=== PATIENT | female | born 1955 | race Caucasian/White ===

== ENCOUNTER → 2017-12-16 11:40 | Outpatient (CLI) | payer BC, SELFPAY ==
--- NOTE | 2017-12-16 11:47 | RAD_ITS ---
STUDY: X-RAY - RIGHT KNEE REASON FOR EXAM: Female, 62 years old. Right knee pain. TECHNIQUE: 4 view(s) of the knee. COMPARISON: None. FINDINGS: Normal visualized distal femur. Normal visualized proximal tibia and fibula. Normal proximal tibiofibular articulation. Normal medial femorotibial compartment. Normal lateral femorotibial compartment. Normal patellofemoral articulation. The soft tissue structures are unremarkable. RAD/Knee 4 or More Views IMPRESSION: Normal x-ray examination of the knee. Electronically Signed: En Christy MD at 12:52 EST Tel [phone], Service support ,
== END ==
PROVIDERS: Family Provider Family Medicine; PCP Family Medicine; Visit Provider Family Medicine
DX: M25.561 Pain in right knee (principal)
CPT/HCPCS: 73564

== ENCOUNTER 2018-06-19 07:58 | Day surgery (SDC) | payer BC, SELFPAY ==
[2018-06-19] VITALS (7 sets, daily range): BP systolic 141–149; BP diastolic 72–79; PULSE 65–70; RESP 12–16; TEMP 36.1–36.4; O2SAT 97–100; BMI 24.9
--- NOTE | 2018-06-19 09:17 | H&P.OPEN ---
Past Medical/Surgical History - Planned Operation Planned Operative Procedure/s: cscope Date of Operative Procedure: 06/19/18 Permit Signed: No S.O.S: No Is This Patient Having a Total Joint: No - Previous Hospitalizations/Surgeries HX Hospitalizations: Yes - pancreatitis yrs ago HX of Surgeries: csection x4. gallbladder. tubal ligation. colonoscopy Any Problems With Anesthesia: No You/Your Family Experience Fever (Hyperthermia) With Anes: No Cholinesterase deficiency: No - Cardiovascular Hx Chest Pain within Last 2 months: No Hx of Irregular Heartbeat and/or Afib: No Hx Heart Attack: No Hx Congestive Heart Failure: No Hx Rheumatic Fever: No Hx Hypertension: No Hx Internal Defibrillator: No Hx Pacemaker: No Hx Cardiac Catheterization: No Hx Cardiac Surgery/Stents/Etc.: No Hx Stress Test: No HX Edema: No Hx Pain in Legs when Walking/Leg Cramps: Yes - cramps prn - Respiratory Chronic Cough: No HX of Shortness of Breath: No Hoarseness: No Hx Chronic Obstructive Pulmonary Disease (COPD): No Hx Asthma: No Hx Emphysema: No Hx Sleep Apnea: No Hx Oxygen Use at Home: No Hx Respiratory Tract Infection/Cold (presently): No Do You Snore Loudly (louder than talking or can be heard): Yes Do You Often Feel Tired/ Fatigued/ Sleepy Dring Daytime?: No Has Anyone Observed You Stop Breathing During Sleep?: No Result (for STOP score): Negative Hx Smoking: No Smoking Status: Never smoker - Gastrointestinal Hx Gastroesophageal Reflux: No - occ heartburn Hx Gastrointestinal Disorders: No Hx Gastrointestinal Bleed: No Hx Ulcer: No Hx Hiatal Hernia: No Difficulty Chewing/Swallowing: No Recent Onset of Swallowing Problems: No Special diet followed at home: No Hx Unplanned Weight Loss of 20#: No HX Unplanned Weight Gain of 20#: No - Neurological Hx Seizures: No HX Syncope/Blackout Spells/Unconsciousness: No Hx CVA/Stroke: No Hx Transient Ischemic Attacks (TIA): No Hx Multiple Sclerosis: No Hx Parkinson's Disease: No Hx Head/Neck Injury: No Hx Headaches: No Hx Back Injury/Pain: Yes - back pain at times Recent Onset of Speech Difficulty: No Restless Legs: Yes Does patient have nerve stimulator: No Patient instructed to have device shut off: No Rep notified?: No - Blood Disorder Hx Leukemia: No Bleeding Tendencies: No Hx Deep Vein Thrombosis: No Hx High Cholesterol: No Blood Transmitted Disease: No Hx Hepatitis: No Hx Cirrhosis: No Hx Anemia: Yes - only during Hx Blood Disorders: No - Reproduction : No Is Patient Lactating: No Hx Hysterectomy: No Hx Tubal Ligation: Yes Are You Post Menopause: Yes - Genitourinary Hx Renal Disease: No - Musculoskeletal Hx Arthritis: Yes Hx Rheumatoid Arthritis: No Hx Gout: No Recent Onset of an Orthopedic Problem: No - Endocrine Hx Diabetes: No Thyroid Disease: No Hx Steroid Therapy: No - Psycho/Social Hx Substance Use: No Hx Alcohol Use: No Hx Anxiety: No Hx Depression: No - . Mental Illness: No Hx Dementia: No - Miscellaneous Hx Cancer: No Recent Exposure to Contagious Disease: No Active MRSA: No Hx of C-Diff: No Any Loose Teeth: No Allergies No Known Allergies Allergy (Verified 06/16/18 09:58) - Discharge Is Pt Admitted From a Halfway, or a Intermediate: No Who Could Help: family After D/C, Where Do you Plan to Go: Return Home - From the PAT History Number of Risk Factors: 3 - Physical Exam General: Alert, Oriented x3, Cooperative Lungs: Normal air movement Cardiovascular: Regular rate, Regular Rhythm Abdomen: Soft, Non Tender, Non-Distended Vital Signs Temp Pulse Resp BP Pulse Ox 97.6 F L 70 14 144/76 H 97 06/19/18 08:37 06/19/18 08:37 06/19/18 08:37 06/19/18 08:37 06/19/18 08:37 Oxygen Delivery Method Room Air Weight: 136 lb 3.931 oz Body Mass Index (BMI) 24.9 Assessment/Plan 63-year-old female for screening colonoscopy 1. The patient reports her last colonoscopy was 13 years ago and was normal. She is not having any issues at this time. She denies any abdominal pain or blood in her stool. She has no family history of colon cancer. 2. I explained endoscopy in detail to the patient. I explained the risks including but not limited to stroke or heart attack with anesthesia, perforation of the GI tract, bleeding, infection. I explained that any of these could necessitate further emergency surgery. The patient understands and all questions were answered sufficiently. The patient wishes to proceed with procedure. Audie Durham MD Pager: [facility] [address] [place] [address], [address] [place] [address] Office: Surgery Risks - Colonoscopy Risks Include but are not Limited To: Risks include but are not limited to: Bleeding, perforation requiring further surgery, inability to complete colonoscopy requiring barium enema.
--- NOTE | 2018-06-19 09:46 | PCM.OPRPT ---
Problem List (1) Screen for colon cancer Status: Acute Report of Operation Date of Procedure: 06/19/18 Pre-Operative Diagnosis: Screening for colon cancer Post-Operative Diagnosis: Normal colonoscopy Surgery/Procedure Performed:: Colonoscopy Description of Procedure: The major risks and benefits associated with the procedure were explained to the patient in detail. The patient verbalized understanding and agreement with the same. The patient was brought to the endoscopy suite. After adequate sedation was achieved, the patient was placed in the left lateral decubitus position and a digital rectal exam was performed. This examination was within normal limits. A well-lubricated colonoscope was then inserted into the rectum and advanced under direct visualization to the level of the cecum. The bowel prep was good. The cecum was identified by both visual and anatomic landmarks. A photograph was taken of the end of the cecum. The scope was then fully withdrawn while examining the color, texture, anatomy and integrity of the mucosa from the cecum to the anal canal. The findings were consistent with normal colonic mucosa. Over 6 minutes were taken to examine the colonic mucosa. Upon reaching the rectum the scope was retroflexed to examine the distal rectal vault. The scope was then straightened and was completely retrieved upon exiting the anal canal and the procedure was terminated. The patient was then transferred to the recovery room in stable condition. Recommendations for follow up: 10 years
== END 2018-06-19 10:30 | disposition home or self-care (01) ==
LOC: EN 07:59 → AC 08:00
PROVIDERS: Family Provider Family Medicine; PCP Family Medicine; Visit Provider Surgery
PROC: 0DJD8ZZ Inspection of Lower Intestinal Tract, Via Natural or Artificial Opening Endoscopic (ICD-10-PCS; CPT 45378; principal; 2018-06-19 08:55)
DX: Z12.11 Encounter for screening for malignant neoplasm of colon (principal); M19.90 Unspecified osteoarthritis, unspecified site
CPT/HCPCS: 45378; J7120

== ENCOUNTER → 2018-07-09 09:23 | Outpatient (CLI) | payer BC, SELFPAY | PROVIDERS: Family Provider Family Medicine; PCP Family Medicine; Visit Provider Family Medicine | DX: Z12.31 Encounter for screening mammogram for malignant neoplasm of breast (principal); M85.80 Other specified disorders of bone density and structure, unspecified site | CPT/HCPCS: 77063; 77067; 77080 ==

== ENCOUNTER → 2018-07-28 09:00 | Outpatient (CLI) | payer BC, SELFPAY ==
--- NOTE | 2018-07-28 09:05 | BI_ITS ---
MAMMOGRAPHY - UNILATERAL DIAGNOSTIC: LEFT BREAST REASON FOR EXAM: Female, 63 years old. Abnormal screening mammogram. PERTINENT HISTORY: Non-contributory. TECHNIQUE: Magnification spot views of the left breast in the mediolateral oblique and craniocaudad projections were obtained. CAD: Full Field Digital Mammography with Computer Added Detection was performed. COMPARISON: Comparison is made with prior mammogram dated July 09, 2018. FINDINGS: Breast Composition: There are scattered areas of fibroglandular density. There is evidence of a cluster of microcalcifications in the medial retroareolar region of the left breast. A biopsy is recommended. No other significant abnormalities are identified. BI/DIAG MAMM W/CAD, UNILAT IMPRESSION: Cluster microcalcifications in the medial retroareolar region of the left breast as described. A biopsy is recommended. ASSESSMENT CATEGORY: BIRADS Category 4: Suspicious - Biopsy Should Be Considered. A letter regarding these results will be sent to the patient by the facility within 30 days. Approximately 10% of breast cancers are not detected by mammography. A normal mammogram should not delay biopsy of a clinically suspicious abnormality. Electronically Signed: En Christy MD at 10:10 EDT Tel [phone], Service support ,
== END ==
PROVIDERS: Family Provider Family Medicine; PCP Family Medicine; Visit Provider Family Medicine
DX: R92.0 Mammographic microcalcification found on diagnostic imaging of breast (principal)
CPT/HCPCS: 77065

== ENCOUNTER → 2018-08-03 15:40 | Outpatient (CLI) | payer BC, SELFPAY ==
[2018-08-03 17:24] LABS: Absolute Lymphocyte Count 0.92 X10^3/ul (0.83-4.51); Absolute Neutrophil Count 2.7 X10^3/uL (2.0-7.7); Basophil# 0.02 X10^3/uL; Basophil% 0.5 % (0-1); Eosinophil# 0.07 X10^3/uL; Eosinophils% 1.8 % (0-5); Hemoglobin 11.5 g/dl (12.0-15.0); Lymphocyte # 0.92 X10^3/ul (4.0); Lymphocyte % 23.2 % (19-41); Mean Corp Hgb Conc 31.9 g/gl (32-36); Mean Corpuscular Hgb 29.6 pg (27.0-32.0); Mean Corpuscular Volume 92.8 fL (81-99); Mean Platelet Vol. 9.8 fl (6.2-12.0); Monocyte# 0.27 X10^3/uL; Monocyte% 6.8 % (0-10); Neutrophil # 2.68 X10^3/uL (2.7-7.7); Neutrophil % 67.7 % (47-70); Platelet Count 247 K/mm3 (150-450); RBC Distribution Width CV 13.9 % (11.6-14.6); RBC Distribution Width SD 46.1 fl (35.1-43.9); Red Blood Count 3.88 M/mm3 (4.2-5.4)
[2018-08-03 17:26] LABS: POSITIVE COUNT NO; POSITIVE DIFFERENTIAL NO; POSITIVE MORPHOLOGY NO
[2018-08-03 17:44] LABS: Anion Gap 4 (5-15); BUN 11 mg/dL (7-18); BUN/Creat Ratio 15.9 RATIO (10-20); Chloride 103 mmol/L (98-107); Creatinine, Serum 0.69 mg/dL (0.55-1.02); EST Glomerular Filtration Rate 91 mL/min (>60); Est Glom Filt Rate - Afr Amer 110 mL/min (>60); Glucose 107 mg/dL (74-106); Potassium 3.7 mmol/L (3.5-5.1); Sodium Level 137 mmol/L (136-145)
[2018-08-04 18:55] LABS: Ferritin 8 ng/mL (8-252); Iron 39 ug/dL (50-170)
== END ==
PROVIDERS: Family Provider Family Medicine; PCP Family Medicine; Visit Provider Family Medicine
DX: I10 Essential (primary) hypertension (principal); M85.80 Other specified disorders of bone density and structure, unspecified site; D64.9 Anemia, unspecified
CPT/HCPCS: 36415; 80048; 82728; 83540; 84443; 85025

== ENCOUNTER → 2018-08-10 11:53 | Outpatient (CLI) | payer BC, SELFPAY ==
--- NOTE | 2018-08-07 | BRBX_PTH ---
PATIENT: NEW HARRIS LOC: [facility] U#:[id number] AGE/SX: 70/F ROOM: RE08/10/[address]: Dr. Audie Durham MD : 1955 BED: DIS: SPEC #: [id number] RECD: 08/10/18 13:55 STATUS: ODALIS KEYLA #: [id number] TRAMAINE: 08/07/18 00:[address]: Audie Durham DEPT: SURGICAL PATHOLOGY RECD BY: Tee Posadas ENTERED: 08/10/18 13:55 SP TYPE: BREAST BX OTHR DR: Dr. Paulie Hidalgo MD Tissues: Left breast, NOS Procedures: Surgery Specimen Level IV HEADER OPERATION: Left breast stereotactic biopsy PRE-OP DIAGNOSIS: Left breast calcifications TISSUE SUBMITTED: Left breast core tissue ISCHEMIC TIME: 1 minute FIXATION TIME: 7 hours MICROSCOPIC DIAGNOSIS Left breast, stereotactic core biopsy: Intraductal hyperplasia with focal cytologic atypia and associated microcalcifications. Mild fibrocystic change. AM:tri 08/11/18 COMMENT Case has been reviewed in consultation with Dr. Bronson who concurs with the above diagnosis. IDC:LEANA MICROSCOPIC DESCRIPTION Slides are reviewed. GROSS DESCRIPTION Received is one container labeled with the patient's name and not further designated. The specimen consists of multiple elongated fragments of key-yellow fibroadipose tissue that in aggregate measure 3 x 2.5 x 0.3 cm. The entire specimen is submitted in one cassette. / SJ:tri 08/11/18 TC:5 CPT: 84228
--- NOTE | 2018-08-11 12:21 | PCM.OPRPT ---
Problem List (1) Abnormal mammogram Status: Acute Report of Operation Date of Procedure: 08/10/18 Pre-Operative Diagnosis: Left breast microcalcifications Post-Operative Diagnosis: same Surgery/Procedure Performed:: Stereotactic guided left breast core needle biopsy with clip placement Specimen's removed: Left breast biopsy Description of Procedure: Patient was placed in stereotactic table and left breast was compressed. Next the microcalcifications were localized and targeted on computer. Next the skin was prepped and anesthetized. A small mitch was created with scalpel. The needle was inserted and fired. Stereotactic images confirmed placement and then biopsies were obtained. Specimens were xrayed and microcalcifications were present. Micro clip was then placed in the cavity and mammogram confirmed presence. The needle was removed and pressure was held on the breast. Incision was closed with steri strip and bandage was applied. Ice pack was given to patient. Patient tolerated the procedure well.
== END ==
PROVIDERS: Family Provider Family Medicine; PCP Family Medicine; Visit Provider Surgery
DX: N60.92 Unspecified benign mammary dysplasia of left breast (principal); N60.12 Diffuse cystic mastopathy of left breast; I10 Essential (primary) hypertension; M19.90 Unspecified osteoarthritis, unspecified site; Z79.899 Other long term (current) drug therapy
CPT/HCPCS: 19081; 88305; J7050

== ENCOUNTER 2018-09-11 09:56 | Day surgery (SDC) | payer BC, SELFPAY ==
--- NOTE | 2018-09-11 | BREAST_PTH ---
PATIENT: NEW HARRIS LOC: [facility] U#:[id number] AGE/SX: 63/F ROOM: RE09/11/[address]: Dr. Audie Durham MD : 1955 BED: DIS: 09/11/2018 SPEC #: [id number] RECD: 09/11/18 13:12 STATUS: ODALIS KEYLA #: [id number] TRAMAINE: 09/11/18 00:[address]: Audie Durham DEPT: SURGICAL PATHOLOGY RECD BY: Tee Posadas ENTERED: 09/11/18 13:13 SP TYPE: BREAST OTHR DR: Dr. Paulie Hidalgo MD Tissues: Left breast, NOS Procedures: Surgery Specimen Level V HEADER OPERATION: Left breast excisional biopsy, needle localization PRE-OP DIAGNOSIS: Atypical hyperplasia left breast TISSUE SUBMITTED: Left breast biopsy, needle localization MICROSCOPIC DIAGNOSIS Left breast, needle localization excisional biopsy: Fibrocystic changes and intraductal hyperplasia with focal atypia. Negative for malignancy. Changes consistent with previous biopsy site. SJ:rg 09/16/18 COMMENT Please make reference to previous specimen ([id number]), left breast, stereotactic core biopsy with diagnosis of intraductal hyperplasia with focal cytologic atypia and associated microcalcifications. MICROSCOPIC DESCRIPTION Slides are reviewed. GROSS DESCRIPTION Received fresh and postfixed in formalin labeled with the patient's name is a specimen designated left breast biopsy needle localization. The specimen consists of a piece of key-yellow fibroadipose tissue with needle localization measuring 4 x 2.5 x 3 cm. The specimen is oriented as follows: short suture - superior, long suture - lateral. The specimen is inked as follows: anterior - yellow, posterior - black, superior - blue, inferior - green, medial - red, lateral - orange. The specimen is serially sectioned and reveals a focally key-yellowish indurated area consistent with previous biopsy site. No obvious mass lesion is identified. The entire specimen is submitted in 11 cassettes. Cassette 1 contains the most anterior portion of the specimen. Cassette 11 contains the most posterior portion of the specimen. Sections will be submitted after additional fixation. / LEANA:tri 09/14/18 TC:5 CPT: 22065
--- NOTE | 2018-09-11 10:00 | BI_ITS ---
SURGICAL BREAST SPECIMEN RADIOGRAPH CLINICAL: Document presence of tissue clip marker in biopsy specimen. FINDINGS: Specimen shows presence of tissue clip marker. Electronically Signed: En Christy MD at 12:34 EDT Tel [phone], Service support , BI/Breast Biopsy Specimen
[2018-09-11 10:24] VITALS: BP 138/77; PULSE 77; RESP 16; TEMP 36.9; O2SAT 97; BMI 25.7
--- NOTE | 2018-09-11 11:24 | PCM.HP.STD ---
Problem List (1) Atypical hyperplasia of left breast Status: Acute History of Present Illness Date of Admission: 09/11/18 The patient is a 63 year old F who underwent stereotactic guided biopsy of left breast calcifications. Since then the patient has been doing well with no bruising or swelling. Past Medical History Past Medical History (Chronic Problems): Chronic Problems (Last Updated 08/05/18 @ 08:53 by Natacha Cervantes) Hypertension (Chronic) Medical History: Medical History (Last Updated 08/05/18 @ 08:53 by Natcaha Cervantes) Hypertension (Chronic) I10 Arthritis (Acute) M19.90 Screen for colon cancer (Acute) Z12.11 Allergies No Known Allergies Allergy (Verified 09/07/18 11:52) Home Medications: Ambulatory Orders Medication Instructions Recorded Calcium Carbonate [Calcium] 600 mg PO BID 06/16/18 Glucosamine Sulf/Chondroitin A 1 ea PO BID 06/16/18 [Glucosamine-Chondroitin Cap] losartan 25 mg tablet 25 mg PO DAILY 08/05/18 Surgical History: Surgical History (Last Updated 08/05/18 @ 08:53 by Natacha Cervantes) Hx of colonoscopy (Acute) Z98.890 Hx of cholecystectomy (Acute) Z90.49 Hx of section (Acute) Z98.891 X4- 1978, 1979, 1981, 1983 Surgical History: no surgical history Smoking Status: Never smoker Tobacco Use: Non-smoker - *Family History Maternal Family History: Family History (Last Updated 08/05/18 @ 09:07 by Natacha Cervantes) Mother Arthritis Sister Diabetes Heart disease Hypertension Thyroid disorder Cancer Brother Heart disease Hypertension CVA (cerebral vascular accident) Father Hypertension Heart disease Daughter Leukemia Review of Systems Constitutional: Denies: Chills, Fever, Weight Change HEENT: Denies: Head Aches, Sinus Congestion, Sinus Drainage Cardiovascular: Denies: Chest Pain, Palpitations Respiratory: Denies: Cough, Shortness of breath at rest, Sputum production Gastrointestinal: Denies: Abdominal Pain, Nausea, Vomiting Genitourinary: Denies: Dysuria Musculoskeletal: Denies: Joint Pain, Joint Tenderness Skin: Denies: Rash, Wounds Neurological: Denies: Numbness, Tingling, Focal weakness Psychiatric: Denies: Anxiety, Depression, Homicidal Ideations, Suicidal Ideations Hematologic/ Lymphatic: Denies: Easy Bruising, Easy Bleeding VTE Information - Inpt Only VTE Present on Admission: No Patient Problems: Active and Suspected Problems (Last Updated 08/05/18 @ 08:53 by Natacha Cervantes) Atypical hyperplasia of left breast (Acute) - Physical Exam General: Alert, Oriented x3, Cooperative HEENT: Atraumatic, PERRLA, EOMI, Normocephalic Neck: Supple, No JVD, Negative Carotid Bruits Lungs: Clear to auscultation, Normal air movement Cardiovascular: Regular rate, No murmurs Abdomen: Bowel Sounds Present, Soft, Non Tender Extremities: No edema, Capillary Refill Less than 3 Seconds Skin: No rashes, No breakdown Musculoskeletal: No Tenderness to Palpation of Joints or Extremities Neurological: Cranial nerves II-XII grossly intact Psych/Mental Status: Normal Affect, Appropriate Vital Signs Temp Pulse Resp BP Pulse Ox 98.4 F 77 16 138/77 H 97 09/11/18 10:24 09/11/18 10:24 09/11/18 10:24 09/11/18 10:24 09/11/18 10:24 Oxygen Delivery Method Room Air Weight: 140 lb 10.479 oz Body Mass Index (BMI) 25.7 Assessment/Plan All Active Problems (Last Updated 08/05/18 @ 08:53 by Natacha Cervantes) Abnormal mammogram (Acute) Atypical hyperplasia of left breast (Acute) Hx of colonoscopy (Acute) Hx of cholecystectomy (Acute) Hx of section (Acute) Arthritis (Acute) Screen for colon cancer (Acute) 63-year-old female with hyperplasia and atypia on the left breast 1. Patient had stereotactic guided biopsy of microcalcifications of the left breast. The results came back as hyperplastic changes with focal atypia. Due to the atypia I recommend that the patient have an excisional biopsy of the area. The patient is agreeable. I plan for needle localized excisional breast biopsy in the operating room. I explained the risks of bleeding, infection, seroma formation. The patient understands the risks and is willing to proceed with surgery. Audie Durham MD Pager: [facility] [address] [place] [address], [address] [place] [address] Office:
--- NOTE | 2018-09-11 11:26 | PCM.OPRPT ---
Problem List (1) Atypical hyperplasia of left breast Status: Acute Report of Operation Date of Procedure: 09/11/18 Pre-Operative Diagnosis: Hyperplasia of the left breast with atypia Post-Operative Diagnosis: Same Surgery/Procedure Performed:: Stereotactic guided needle wire localization Description of Procedure: The patient was brought to the stereotactic room and placed in the stereotactic table. The left breast was compressed and spot views were able to localize the clip from the prior biopsy. +/-15 degree views were obtained and the clip was localized. Next the skin was prepped with Betadine and anesthetized with lidocaine. The needle was advanced and the guidewire was held in place as the needle was pulled back. The needle was then clipped and mammographic views confirmed that the tip of the needle was adjacent to the titanium clip. Patient tolerated the procedure well and will be taken downstairs for excisional biopsy.
--- NOTE | 2018-09-11 11:27 | HP.PCM_ITS ---
Problem List (1) Atypical hyperplasia of left breast Status: Acute History of Present Illness Date of Admission: 09/11/18 The patient is a 63 year old F who underwent stereotactic guided biopsy of left breast calcifications. Since then the patient has been doing well with no bru ising or swelling. Past Medical History Past Medical History (Chronic Problems): Chronic Problems (Last Updated 08/05/18 @ 08:53 by Natacha Cervantes) Hypertension (Chronic) Medical History: Medical History (Last Updated 08/05/18 @ 08:53 by Natacha Cervantes) Hypertension (Chronic) I10 Arthritis (Acute) M19.90 Screen for colon cancer (Acute) Z12.11 Allergies No Known Allergies Allergy (Verified 09/07/18 11:52) Home Medications: Ambulatory Orders Medication Instructions Recorded Calcium Carbonate [Calcium] 600 mg PO BID 06/16/18 Glucosamine Sulf/Chondroitin A 1 ea PO BID 06/16/18 [Glucosamine-Chondroitin Cap] losartan 25 mg tablet 25 mg PO DAILY 08/05/18 Surgical History: Surgical History (Last Updated 08/05/18 @ 08:53 by Natacha Cervantes) Hx of colonoscopy (Acute) Z98.890 Hx of cholecystectomy (Acute) Z90.49 Hx of section (Acute) Z98.891 X4- 1978, 1979, 1981, 1983 Surgical History: no surgical history Smoking Status: Never smoker Tobacco Use: Non-smoker - *Family History Maternal Family History: Family History (Last Updated 08/05/18 @ 09:07 by Natacha Cervantes) Mother Arthritis Sister Diabetes Heart disease Hypertension Thyroid disorder Cancer Brother Heart disease Hypertension CVA (cerebral vascular accident) Father Hypertension Heart disease Daughter Leukemia Review of Systems Constitutional: Denies: Chills, Fever, Weight Change HEENT: Denies: Head Aches, Sinus Congestion, Sinus Drainage Cardiovascular: Denies: Chest Pain, Palpitations Respiratory: Denies: Cough, Shortness of breath at rest, Sputum production Gastrointestinal: Denies: Abdominal Pain, Nausea, Vomiting Genitourinary: Denies: Dysuria Musculoskeletal: Denies: Joint Pain, Joint Tenderness Skin: Denies: Rash, Wounds Neurological: Denies: Numbness, Tingling, Focal weakness Psychiatric: Denies: Anxiety, Depression, Homicidal Ideations, Suicidal Ideations Hematologic/ Lymphatic: Denies: Easy Bruising, Easy Bleeding VTE Information - Inpt Only VTE Present on Admission: No Patient Problems: Active and Suspected Problems (Last Updated 08/05/18 @ 08:53 by Natacha Cervantes) Atypical hyperplasia of left breast (Acute) - Physical Exam General: Alert, Oriented x3, Cooperative HEENT: Atraumatic, PERRLA, EOMI, Normocephalic Neck: Supple, No JVD, Negative Carotid Bruits Lungs: Clear to auscultation, Normal air movement Cardiovascular: Regular rate, No murmurs Abdomen: Bowel Sounds Present, Soft, Non Tender Extremities: No edema, Capillary Refill Less than 3 Seconds Skin: No rashes, No breakdown Musculoskeletal: No Tenderness to Palpation of Joints or Extremities Neurological: Cranial nerves II-XII grossly intact Psych/Mental Status: Normal Affect, Appropriate Vital Signs Temp Pulse Resp BP Pulse Ox 98.4 F 77 16 138/77 H 97 09/11/18 10:24 09/11/18 10:24 09/11/18 10:24 09/11/18 10:24 09/11/18 10:24 Oxygen Delivery Method Room Air Weight: 140 lb 10.479 oz Body Mass Index (BMI) 25.7 Assessment/Plan All Active Problems (Last Updated 08/05/18 @ 08:53 by Natacha Cervantes) Abnormal mammogram (Acute) Atypical hyperplasia of left breast (Acute) Hx of colonoscopy (Acute) Hx of cholecystectomy (Acute) Hx of section (Acute) Arthritis (Acute) Screen for colon cancer (Acute) 63-year-old female with hyperplasia and atypia on the left breast 1. Patient had stereotactic guided biopsy of microcalcifications of the left breast. The results came back as hyperplastic changes with focal atypia. Due to the atypia I recommend that the patient have an excisional biopsy of the area. The patient is agreeable. I plan for needle localized excisional breast biopsy in the operating room. I explained the risks of bleeding, infection, seroma formation. The patient understands the risks and is willing to proceed with surgery. Audie Durham MD Pager: [facility] [address] [place] [address], [address] [place] [address] Office:
[2018-09-11] MEDS: Cefazolin 2 GM in 0.9% Normal Saline 100 ML IV (11:49)
[2018-09-11] MEDS: Bupivacaine Mpf 0.5% 30 ML VIAL (11:58)
--- NOTE | 2018-09-11 12:26 | PCM.OPRPT ---
Problem List (1) Atypical hyperplasia of left breast Status: Acute Report of Operation Date of Procedure: 09/11/18 Pre-Operative Diagnosis: Hyperplasia of the left breast with atypia Post-Operative Diagnosis: Same Surgery/Procedure Performed:: Needle localized excisional biopsy of left breast Specimen's removed: Left breast with long lateral suture and short superior suture Description of Procedure: The patient went for needle localization prior to operation please see separate operative report for that. The patient was brought back the operating room and general anesthesia was induced. The left breast was prepped and draped in the usual sterile fashion. An incision was marked in the medial periareolar space coinciding with the edge of the nipple. An incision was made with scalpel and this was extended medially and laterally. The wire was brought into the incision. Next the wire and breast tissue posterior to the nipple are grasped with an Allis clamp and elevated. Electrocautery was used to dissect circumferential until the wire tip was reached the specimen was then removed using Dr. galvanterena. The specimen was marked with a short stitch superiorly and long stitch laterally. This was sent for x-ray. Next the cavity was packed and then inspected. There were a few areas that were bleeding and these areas were cauterized. Next the cavity was irrigated and suctioned dry and there was no further bleeding. A few deep 3-0 Vicryl sutures were used to bring together the deep tissue of the breast. The incision was then closed with interrupted 3-0 Vicryl sutures. The incision was then anesthetized with lidocaine and the skin was closed with a running 4-0 Monocryl suture. Histocryl glue was then applied to the incision. The patient was awoken and taken to PACU in stable condition. The patient tolerated the procedure well. X-rays of the specimen show that the biopsy clip was present in the specimen and as was the entirety of the wire. - Admit VTE Documentation VTE Mechan Device Prophylaxis: SCD's
[2018-09-11 12:27] VITALS: BP 134/75; BP 138/77; PULSE 75; RESP 16; TEMP 36.3; O2SAT 97
[2018-09-11 12:30] VITALS: BP 133/82; BP 138/77; PULSE 77; RESP 16; O2SAT 99
--- NOTE | 2018-09-11 12:38 | DCINST_ITS ---
Discharge Diet: No Restrictions Discharge Activity: May Not Drive - for 2-3 days or while taking narcotic pain meds. May shower in (days): 1 Lifting Restrictions: 10 pounds for 1 week. Call your doctor if your incision/area has: Continuous Slow Oozing, Sudden In creased Bleeding, Increased Pain/ Swelling, Increased Redness, Foul Smelling Discharge, Swelling at the incision site Call your doctor if you observe: Fever of 101 or Higher Suture Line Care: Avoid Pulling/Pushing, Avoid Pinching/Bending Cleanse incision/area with: Soap & Water Allergies/Adverse Reactions: Allergies No Known Allergies Allergy (Verified 09/07/18 11:52) Medications to take at Discharge Calcium Carbonate [Calcium] 600 mg PO BID 06/16/18 Glucosamine Sulf/Chondroitin A [Glucosamine-Chondroitin Cap] 1 ea PO BID 06/16/18 losartan 25 mg tablet 25 mg PO DAILY 08/05/18 Oxycodone HCl/Acetaminophen [Percocet 5/325] 1 - 2 tablet PO Q4H PRN PRN 7 Days #20 tablet 09/11/18 The following prescriptions were given: Oxycodone HCl/Acetaminophen [Percocet 5/325] 1 - 2 tablet PO Q4H PRN PRN 7 Days #20 tablet PRN Reason: Pain Primary Care Physician: Paulie Hidalgo MD [Primary Care Provider] - Please Follow Up With: Audie Durham MD When: call friday to make 2 week follow up [phone]
[2018-09-11 12:45] VITALS: BP 137/76; BP 138/77; PULSE 66; RESP 16; TEMP 36.1; O2SAT 100
[2018-09-11 13:12] VITALS: BP 138/77
== END 2018-09-11 13:44 | disposition home or self-care (01) ==
LOC: SDC 10:08 → AC 10:08
PROVIDERS: Family Provider Family Medicine; PCP Family Medicine; Referring Provider Surgery; Visit Provider Surgery
PROC: (CPT 19125; principal; 2018-09-11 11:15)
DX: N60.12 Diffuse cystic mastopathy of left breast (principal); N60.92 Unspecified benign mammary dysplasia of left breast; I10 Essential (primary) hypertension; M19.90 Unspecified osteoarthritis, unspecified site; Z79.899 Other long term (current) drug therapy
CPT/HCPCS: 00400; 19125; 19281; 76098; 88307; J7120; J2405

== ENCOUNTER → 2019-01-18 10:12 | Outpatient (CLI) | payer MEDICARE, BC, SELFPAY ==
[2019-01-18 12:26] LABS: Absolute Lymphocyte Count 1.03 X10^3/ul (0.83-4.51); Absolute Neutrophil Count 2.4 X10^3/uL (2.0-7.7); Basophil# 0.03 X10^3/uL; Basophil% 0.8 % (0-1); Eosinophil# 0.07 X10^3/uL; Eosinophils% 1.8 % (0-5); Hematocrit 40.8 % (37-47); Hemoglobin 12.7 g/dl (12.0-15.0); Lymphocyte # 1.03 X10^3/ul (4.0); Lymphocyte % 26.4 % (19-41); Mean Corp Hgb Conc 31.1 g/gl (32-36); Mean Corpuscular Hgb 29.1 pg (27.0-32.0); Mean Corpuscular Volume 93.4 fL (81-99); Mean Platelet Vol. 10.3 fl (6.2-12.0); Monocyte# 0.33 X10^3/uL; Monocyte% 8.5 % (0-10); Neutrophil # 2.43 X10^3/uL (2.7-7.7); Neutrophil % 62.2 % (47-70); Platelet Count 229 K/mm3 (150-450); RBC Distribution Width CV 14.5 % (11.6-14.6); RBC Distribution Width SD 47.2 fl (35.1-43.9); Red Blood Count 4.37 M/mm3 (4.2-5.4); White Blood Count 3.9 K/mm3 (4.4-11.0)
[2019-01-18 12:28] LABS: POSITIVE COUNT NO; POSITIVE DIFFERENTIAL NO; POSITIVE MORPHOLOGY NO
[2019-01-18 13:05] LABS: Anion Gap 5 (5-15); BUN 11 mg/dL (7-18); BUN/Creat Ratio 15.9 RATIO (10-20); Calcium,Total 8.9 mg/dL (8.5-10.1); Chloride 105 mmol/L (98-107); Creatinine, Serum 0.69 mg/dL (0.55-1.02); EST Glomerular Filtration Rate 91 mL/min (>60); Est Glom Filt Rate - Afr Amer 110 mL/min (>60); Glucose 92 mg/dL (74-106); Potassium 4.1 mmol/L (3.5-5.1); Sodium Level 139 mmol/L (136-145)
== END ==
PROVIDERS: Family Provider Family Medicine; PCP Family Medicine; Visit Provider Family Medicine
DX: I10 Essential (primary) hypertension (principal); D64.9 Anemia, unspecified
CPT/HCPCS: 36415; 80048; 85025

== ENCOUNTER → 2021-01-03 16:10 | Outpatient (CLI) | payer MEDICARE, BC, SELFPAY ==
[2021-01-03 17:40] LABS: Absolute Lymphocyte Count 1.19 X10^3/uL (0.83-4.51); Absolute Neutrophil Count 2.5 X10^3/uL (2.0-7.7); Basophil# 0.04 X10^3/uL; Basophil% 0.9 % (0-1); Eosinophil# 0.09 X10^3/uL; Eosinophils% 2.1 % (0-5); Hemoglobin 13.4 g/dL (12.0-15.0); Lymphocyte # 1.19 X10^3/ul (4.0); Lymphocyte % 27.8 % (19-41); Mean Corp Hgb Conc 32.7 g/dL (32-36); Mean Corpuscular Hgb 30.5 pg (27.0-32.0); Mean Corpuscular Volume 93.4 fL (81-99); Mean Platelet Vol. 9.8 fl (6.2-12.0); Monocyte# 0.47 X10^3/uL; NRBC Flagged by Analyzer 0 % (0-5); Neutrophil # 2.48 X10^3/uL (2.7-7.7); Platelet Count 246 K/mm3 (150-450); RBC Distribution Width CV 12.5 % (11.6-14.6); RBC Distribution Width SD 43.4 fl (35.1-43.9); Red Blood Count 4.39 M/mm3 (4.2-5.4); White Blood Count 4.3 K/mm3 (4.4-11.0)
[2021-01-03 18:21] LABS: Anion Gap 5 (5-15); BUN 14 mg/dL (7-18); BUN/Creat Ratio 18.9 RATIO (10-20); Chloride 104 mmol/L (98-107); Creatinine, Serum 0.74 mg/dL (0.55-1.02); EST Glomerular Filtration Rate 83 mL/min (>60); Est Glom Filt Rate - Afr Amer 101 mL/min (>60); Glucose 101 mg/dL (74-106); Potassium 3.9 mmol/L (3.5-5.1); Sodium Level 139 mmol/L (136-145); Thyroid Stim Hormone (TSH) 0.98 uIU/mL (0.358-3.74)
== END ==
PROVIDERS: PCP Family Medicine; Visit Provider Family Medicine
DX: I10 Essential (primary) hypertension (principal); D64.9 Anemia, unspecified; M85.80 Other specified disorders of bone density and structure, unspecified site
CPT/HCPCS: 36415; 80048; 82306; 84443; 85025

== ENCOUNTER → 2022-05-13 | Outpatient (CLI) | payer MEDICARE, BC, SELFPAY ==
[2022-05-13 18:35] LABS: Anion Gap 7 (5-15); BUN 12 mg/dL (7-18); BUN/Creat Ratio 16.9 RATIO (10-20); Calcium,Total 9.3 mg/dL (8.5-10.1); Chloride 106 mmol/L (98-107); Creatinine, Serum 0.71 mg/dL (0.55-1.02); EST Glomerular Filtration Rate 87 mL/min (>60); Est Glom Filt Rate - Afr Amer 105 mL/min (>60); Glucose 118 mg/dL (74-106); Potassium 3.7 mmol/L (3.5-5.1); Sodium Level 141 mmol/L (136-145)
[2022-05-13 18:36] LABS: Vitamin D,25 Hydroxy 33.4 ng/mL
== END | disposition home or self-care (01) ==
PROVIDERS: PCP Family Medicine; Referring Provider Family Medicine; Visit Provider Family Medicine
DX: E55.9 Vitamin D deficiency, unspecified (principal); I10 Essential (primary) hypertension
CPT/HCPCS: 36415; 80048; 82306

== ENCOUNTER → 2023-05-27 | Outpatient (CLI) | payer MEDICARE, OTHER, SELFPAY ==
[2023-05-27 12:20] LABS: Absolute Lymphocyte Count 0.93 X10^3/uL (0.83-4.51); Basophil# 0.03 X10^3/uL; Basophil% 0.9 % (0-1); Eosinophil# 0.05 X10^3/uL; Eosinophils% 1.5 % (0-5); Hematocrit 39.7 % (37-47); Hemoglobin 13.4 g/dL (12.0-15.0); Lymphocyte # 0.93 X10^3/ul (0.83-4.51); Lymphocyte % 27.3 % (19-41); Mean Corp Hgb Conc 33.8 g/dL (32-36); Mean Corpuscular Hgb 31.4 pg (27.0-32.0); Mean Platelet Vol. 10.2 fl (6.2-12.0); Monocyte# 0.36 X10^3/uL; Monocyte% 10.6 % (0-10); NRBC Flagged by Analyzer 0 % (0-5); Neutrophil # 2.02 X10^3/uL (2.7-7.7); Neutrophil % 59.1 % (47-70); Platelet Count 228 K/mm3 (150-450); RBC Distribution Width CV 12.9 % (11.6-14.6); RBC Distribution Width SD 43.8 fl (35.1-43.9); Red Blood Count 4.27 M/mm3 (4.2-5.4); White Blood Count 3.4 K/mm3 (4.4-11.0)
[2023-05-27 12:34] LABS: Vitamin D,25 Hydroxy 34.2 ng/mL
[2023-05-27 12:39] LABS: ALB/GLOB Ratio 1.1 RATIO (0.9-2.4); AST(SGOT) 24 U/L (15-37); Alanine Aminotransfer ALT/SGPT 34 U/L (13-56); Albumin, Serum 3.7 g/dL (3.2-5.0); Alkaline Phosphatase 77 U/L (45-117); Anion Gap 7 (5-15); BUN 13 mg/dL (7-18); BUN/Creat Ratio 17.6 RATIO (10-20); Calcium,Total 9.2 mg/dL (8.5-10.1); Chloride 106 mmol/L (98-107); Creatinine, Serum 0.74 mg/dL (0.55-1.02); EST Glomerular Filtration Rate 83 mL/min (>60); Est Glom Filt Rate - Afr Amer 100 mL/min (>60); Globulin 3.4 g/dL (2.2-4.2); Glucose 96 mg/dL (74-106); Potassium 3.9 mmol/L (3.5-5.1); Protein, Total 7.1 g/dL (6.4-8.2); Sodium Level 139 mmol/L (136-145)
== END | disposition home or self-care (01) ==
PROVIDERS: PCP Nurse Practitioner Family; Referring Provider Nurse Practitioner Family; Visit Provider Nurse Practitioner Family
DX: I10 Essential (primary) hypertension (principal); D64.9 Anemia, unspecified; E55.9 Vitamin D deficiency, unspecified
CPT/HCPCS: 36415; 80053; 82306; 85025

== ENCOUNTER → 2024-06-02 | Outpatient (CLI) | payer MEDICARE, OTHER, SELFPAY ==
[2024-06-02 15:56] LABS: Absolute Lymphocyte Count 0.94 X10^3/uL (0.83-4.51); Absolute Neutrophil Count 2.4 X10^3/uL (2.0-7.7); Basophil# 0.02 X10^3/uL; Basophil% 0.5 % (0-1); Eosinophil# 0.08 X10^3/uL; Eosinophils% 2.1 % (0-5); Hematocrit 40.4 % (37-47); Hemoglobin 13.2 g/dL (12.0-15.0); Lymphocyte # 0.94 X10^3/ul (0.83-4.51); Lymphocyte % 24.8 % (19-41); Mean Corp Hgb Conc 32.7 g/dL (32-36); Mean Corpuscular Hgb 30.8 pg (27.0-32.0); Mean Corpuscular Volume 94.4 fL (81-99); Mean Platelet Vol. 10.5 fl (6.2-12.0); Monocyte% 7.9 % (0-10); NRBC Flagged by Analyzer 0 % (0-5); Neutrophil # 2.44 X10^3/uL (2.7-7.7); Neutrophil % 64.4 % (47-70); Platelet Count 235 K/mm3 (150-450); RBC Distribution Width CV 13.1 % (11.6-14.6); RBC Distribution Width SD 44.7 fl (35.1-43.9); Red Blood Count 4.28 M/mm3 (4.2-5.4); White Blood Count 3.8 K/mm3 (4.4-11.0)
[2024-06-02 16:17] LABS: Vitamin D,25 Hydroxy 54.9 ng/mL
[2024-06-02 16:18] LABS: ALB/GLOB Ratio 1.2 RATIO (0.9-2.4); AST(SGOT) 22 U/L (15-37); Alanine Aminotransfer ALT/SGPT 31 U/L (13-56); Albumin, Serum 3.8 g/dL (3.2-5.0); Alkaline Phosphatase 79 U/L (45-117); Anion Gap 4 (5-15); BUN 16 mg/dL (7-18); BUN/Creat Ratio 19.1 RATIO (10-20); Calcium,Total 9.3 mg/dL (8.5-10.1); Chloride 105 mmol/L (98-107); Cholesterol 214 mg/dL (200); Creatinine, Serum 0.84 mg/dL (0.55-1.02); EST Glomerular Filtration Rate 71 mL/min (>60); Est Glom Filt Rate - Afr Amer 86 mL/min (>60); Globulin 3.3 g/dL (2.2-4.2); Glucose 126 mg/dL (74-106); High Density Lipoprotein 56 mg/dL; Protein, Total 7.1 g/dL (6.4-8.2); Sodium Level 138 mmol/L (136-145); Triglycerides 256 mg/dL; Very Low Density Lipoprotein 51 mg/dL (5-40)
== END | disposition home or self-care (01) ==
LOC: LABSPEC 15:12 → BFHLAB 15:55
PROVIDERS: PCP Nurse Practitioner Family; Referring Provider Nurse Practitioner Family; Visit Provider Nurse Practitioner Family
DX: Z00.01 Encounter for general adult medical examination with abnormal findings (principal); I10 Essential (primary) hypertension; E55.9 Vitamin D deficiency, unspecified
CPT/HCPCS: 36415; 80053; 80061; 82306; 85025

== ENCOUNTER → 2025-06-06 | Outpatient (CLI) | payer MEDICARE, OTHER, SELFPAY ==
[2025-06-06 12:35] LABS: Hematocrit 39.7 % (37-47); Hemoglobin 13.2 g/dL (12.0-15.0); Immature Granulocytes Count 0.010 X10^3/uL (0.0-0.0); Mean Corp Hgb Conc 33.2 g/dL (32-36); Mean Corpuscular Volume 93.0 fL (81-99); Mean Platelet Vol. 10.3 fl (6.2-12.0); NRBC Flagged by Analyzer 0 % (0-5); Platelet Count 220 K/mm3 (150-450); RBC Distribution Width CV 12.8 % (11.6-14.6); RBC Distribution Width SD 43.8 fl (35.1-43.9); Red Blood Count 4.27 M/mm3 (4.2-5.4); White Blood Count 3.9 K/mm3 (4.4-11.0)
[2025-06-06 13:52] LABS: AST(SGOT) 23 U/L (<=31); Alanine Aminotransfer ALT/SGPT 23 U/L (<=34); Albumin, Serum 4.4 g/dL (3.4-4.8); Alkaline Phosphatase 78 U/L (35-104); Anion Gap 13 (5-15); BUN 13 mg/dL (4-19); BUN/Creat Ratio 18.2 RATIO (10-20); Calcium,Total 9.8 mg/dL (7.6-11.0); Carbon Dioxide 24.7 mmol/L (21.0-32.0); Chloride 103 mmol/L (98-108); Cholesterol 215 mg/dL (<=200); Globulin 2.5 g/dL (2.2-4.2); Glucose 116 mg/dL (70-99); Low Density Lipoprotein Calc. 113 mg/dL; Potassium 3.7 mmol/L (3.3-5.1); Triglycerides 247 mg/dL; Very Low Density Lipoprotein 49 mg/dL (5-40); cholesterol:hdl ratio screen 4.11
[2025-06-06 14:00] LABS: Vitamin D,25 Hydroxy 45.1 ng/mL (30-100)
== END | disposition home or self-care (01) ==
PROVIDERS: PCP Nurse Practitioner Family; Visit Provider Nurse Practitioner Family
DX: Z00.01 Encounter for general adult medical examination with abnormal findings (principal); I10 Essential (primary) hypertension; E55.9 Vitamin D deficiency, unspecified
CPT/HCPCS: 36415; 80053; 80061; 82306; 85025